=== PATIENT | male | born 1940 | race Two or more races ===

== ENCOUNTER 2019-11-08 16:53 | Emergency (ER) | payer MEDICARE, BC ==
[~2019-11-08] VITALS: Ht 182.9 cm; Wt 69.2 kg
--- NOTE | 2019-11-08 17:30 | NUR ---
PT C/O N/V - STARTED YESTERDAY; NIGHT SWEATS X 3 DAYS. SOB W/ WALKING DISTANCES - NEW FINDING. DENIES FEVER, UTI SX, ABD PAIN, OTHER PAIN, SPINNING SENSATION. PT'S SON IN ROOM, ASSISTING W/ INFORMATION. STARTED NEW MED THIS MORNING - VOMITED AFTER. PER SON, "I CATCH A LITTLE BIT OF SLURRED SPEECH". PT DROVE TO THIS AREA FROM [place] TODAY. PT SEEN AT IN [facility] TODAY.
--- NOTE | 2019-11-08 17:35 | NUR ---
DR DUDLEY BS FOR EXAM.
[2019-11-08] MEDS ORDERED: SODIUM CHLORIDE 0.9% 1,000ML IVBOLUS ONE (18:00)
--- NOTE | 2019-11-08 18:07 | NUR ---
TO CT PER CHRISTOPHER
[2019-11-08 18:11] LABS: BASOPHILS # (AUTO) 0.03 x10^3/uL (0-0.1); BASOPHILS % (AUTO) 0 % (0-1); EOSINOPHILS % (AUTO) 0 % (1-7); LYMPHOCYTES # (AUTO) 0.61 x10^3/uL (1-3.4); LYMPHOCYTES % (AUTO) 6 % (22-44); MD NO; MEAN CORPUSCULAR HEMOGLOBIN 30.8 pg (27.5-34.5); MEAN CORPUSCULAR HGB CONC 32.9 g/dL (33.2-36.2); MEAN CORPUSCULAR VOLUME 93.7 fL (81-97); MEAN PLATELET VOLUME 8.8 fL (7.4-10.4); MONOCYTES # (AUTO) 0.25 x10^3/uL (0.2-0.8); MONOCYTES % (AUTO) 2 % (2-9); NEUTROPHILS # (AUTO) 9.74 x10^3/uL (1.8-6.8); NEUTROPHILS % (AUTO) 92 % (42-75); PLATELET COUNT 255 x10^3/uL (130-400); RED BLOOD COUNT 5.14 x10^6/uL (4.38-5.82); RED CELL DISTRIBUTION WIDTH 14.4 % (9.4-14.8)
[2019-11-08 18:24] LABS: ALBUMIN 4.2 g/dL (3.4-5.0); ANION GAP 12 mmol/L (5-15); CALCIUM 9.2 mg/dL (8.5-10.1); CHLORIDE 106 mmol/L (98-107)
[2019-11-08 18:30] LABS: ALANINE AMINOTRANSFERASE 23 U/L (12-78); ALKALINE PHOSPHATASE 54 U/L (45-117); CREATININE 1.06 mg/dL (0.7-1.3); TOTAL PROTEIN 7.3 g/dL (6.4-8.2); TROPONIN I < 0.015 ng/mL (0.000-0.045)
[2019-11-08 18:44] LABS: MICROSCOPIC NOT IND
[2019-11-08] MEDS ORDERED: ONDANSETRON 2MG/ML, 2ML IVPush ONE (19:00)
[2019-11-08] MEDS ORDERED: OMNIPAQUE 350 MG/ML, 100ML BOTTLE ONE (19:15)
[2019-11-08] MEDS ORDERED: ONDANSETRON 2MG/ML, 2ML ONE (19:32)
[2019-11-08 19:46] VITALS: BP 122/60
--- NOTE | 2019-11-08 19:53 | NUR ---
PO CHALLENGE INITIATED W/ WATER.
[2019-11-08] MEDS ORDERED: DONE10TA7 PO (20:00)
[2019-11-08] MEDS ORDERED: EMPA25TA PO (20:00)
[2019-11-08] MEDS ORDERED: ROSU10TA2 PO (20:00)
[2019-11-08] MEDS ORDERED: MEMA14CA5 PO (20:00)
[2019-11-08] MEDS ORDERED: CHOL10003 PO (20:00)
[2019-11-08] MEDS ORDERED: ASPI-496 PO (20:00)
[2019-11-08] MEDS ORDERED: CLOP75TA PO (20:00)
[2019-11-08] MEDS ORDERED: METF500T17 PO (20:00)
[2019-11-08] MEDS ORDERED: LISI-167 PO (20:00)
[2019-11-08] MEDS ORDERED: NITR0.4T28 SL (20:00)
--- NOTE | 2019-11-08 20:03 | NUR ---
PT AMBULATORY 20 FEET W/OUT INCIDENT; DENIED DIZZINESS; STATES HE FEELS "BETTER THAN I HAVE IN WEEKS". ERP WILL BE NOTIFIED.
== END 2019-11-08 20:36 | disposition home or self-care (01) ==
LOC: ED 18:30
DX: R11.2 Nausea with vomiting, unspecified (principal); E86.0 Dehydration; G30.1 Alzheimer's disease with late onset; F02.80 Dementia in other diseases classified elsewhere, unspecified severity, without behavioral disturbance, psychotic disturbance, mood disturbance, and anxiety; R42 Dizziness and giddiness; R06.02 Shortness of breath; R51 Headache; R94.31 Abnormal electrocardiogram [ECG] [EKG]; E11.9 Type 2 diabetes mellitus without complications; Z95.0 Presence of cardiac pacemaker; Z98.61 Coronary angioplasty status
CPT/HCPCS: 36415; 70450; 71045; 74177; 80053; 81003; 83690; 83735; 83880; 84484; 85025; 87040; 93005; 96361; 96374; 99285; J2405; J7030; Q9967